=== PATIENT | male | born 1940 | race Caucasian/White ===

== ENCOUNTER → 2017-01-13 | Outpatient (CLI) | payer MEDICARE ==
[~2017-01-13] MED LIST: ACET500T68 PO; ATOR20TA58 PO; DICL75TA PO; LEVO88TA4 PO; TEST200V3 IM
--- NOTE | 2017-01-14 17:43 | SLEEP ---
DATE OF STUDY: 01/13/2017 ATTENDING PHYSICIAN: Dr. Tg Guallpa. The patient is 76 years old, weighs 175 pounds and is with a BMI of 27. [place] score was 6. The patient had a history of sleep apnea diagnosed by a sleep study 6 years ago and was using CPAP at 12 cm of water with 2 liters of supplemental oxygen. The patient had another split night study, which was requested by primary care physician. During the night study, the patient spent 445 minutes in bed and slept for 411 minutes with a sleep efficiency of 92%. Sleep latency was 9 minutes with a REM latency of 321 minutes. Overall, sleep architecture showed normal stage I and stage II sleep, increased slow wave and reduced REM sleep. During the initial diagnostic portion of the study, the patient slept for 147 minutes. During this time, there were 6 obstructive apneas, 43 mixed apneas, 1 central apnea and 81 hypopneas. The patient's apnea hypopnea index was 54 per hour, supine index 54 per hour and REM sleep was not seen during the diagnostic portion. Review of nocturnal oximetry study revealed a mean oxygen saturation of 96% with the lowest of 71%. 20% of time oxygen saturation remained between 80% and 89%. EKG monitoring revealed normal sinus rhythm, average heart rate was 78 beats per minute. No sustained arrhythmias were observed. PLMS were seen at index of 28 per hour and 3 per hour caused EEG arousals. The patient met the criteria for CPAP initiation. It was started at 5 cm of water, but patient complained of air hunger on lower pressure and pressure was increased. At the final pressure of 14 cm of water, the patient slept for 54 minutes. The patient had supine as well as a REM sleep. AHI was reduced to 0 per hour and oxygen saturation remained above 91%. The patient used a full face mask. IMPRESSION: 1. Severe sleep apnea-hypopnea syndrome with an apnea-hypopnea index of 54 per hour. 2. Nocturnal hypoxia secondary to obstructive sleep apnea, but resolved with CPAP. 3. Moderate periodic limb movements during sleep. RECOMMENDATIONS: 1. CPAP at 14 cm water completely eliminated patient's sleep apnea, should be used on a nightly basis. 2. Follow up in 4-6 weeks to assess compliance with CPAP and to document clinical improvement. 3. Weight loss is advised. 4. Avoid central nervous system depressants. 5. Caution regarding driving until symptoms of sleep apnea resolve with the use of CPAP. JEANETTE LAZO MD DR: MARK/hattie JOB#: [id number] / [id number] TG Miller MD MTDD
== END | disposition home or self-care (01) ==
LOC: RT 18:51
PROVIDERS: ATTEND Family Medicine
DX: G47.33 Obstructive sleep apnea (adult) (pediatric) (principal)
CPT/HCPCS: 95810

== ENCOUNTER → 2017-02-20 | Outpatient (CLI) | payer MEDICARE ==
--- NOTE | 2017-02-20 13:19 | RAD ---
Indication malignant neoplasm found and a lymph node in the abdomen and pelvis. Follow-up. Staging. Noncontrast imaging through the chest was performed. No similar imaging is available. No imaging of the abdomen or pelvis is available. Imaging through the upper abdomen is unremarkable. The ascending thoracic aorta is moderately prominent measuring approximately 4.5 cm in greatest dimension. There is coronary artery calcification or stenting. There is no significant hilar or mediastinal adenopathy. Spinal fixation cage in the lower thoracic spine is noted. An acute finding in the chest is not seen. Dominant soft tissue mass is not apparent. There is no evidence of metastatic disease in the chest. IMPRESSION: No acute finding seen in the chest. No evidence of metastatic disease Prominent ascending thoracic aorta to approximately 4.5 cm PQRS Compliance Statement: One or more of the following individualized dose reduction techniques were utilized for this examination: 1. Automated exposure control 2. Adjustment of the mA and/or kV according to patient size 3. Use of iterative reconstruction technique
--- NOTE | 2017-02-20 16:57 | RAD ---
Indication staging. Malignant lymph node identified in the abdomen. Whole body bone scan images were obtained as well as targeted views to the upper extremities. No prior bone scan imaging is available. 26.6 mCi of technetium labeled MDP was administered. There are photopenic areas seen in the right shoulder and knees compatible with joint replacements. There is a focus of increased uptake in the right foot likely degenerative. There is substantial increased activity about the left shoulder compatible with advanced degenerative changes as demonstrated on the CT examination of the chest obtained the same day. There are areas of increased uptake in 2 midthoracic vertebral body segments and at the lumbosacral junction which are likely benign and compatible with fractures and/or postoperative changes in these areas. Correlation with any old imaging studies available advised. Spinal fixation is noted extending from the lower thoracic spine to L5 on an MRI examination 06/07/2015. There is no evidence of widespread skeletal metastatic disease. Normal activity is seen in the kidneys and urinary bladder. IMPRESSION: Multiple areas of increased uptake most compatible with degenerative uptake and old injuries. No definite evidence of skeletal metastatic disease
== END | disposition home or self-care (01) ==
LOC: CT 07:32
PROVIDERS: ATTEND Family Medicine
DX: C79.89 Secondary malignant neoplasm of other specified sites (principal)
CPT/HCPCS: 71250; 78306; 96374; A9503